=== PATIENT | male | born 1990 | race Caucasian/White ===

== ENCOUNTER 2025-05-11 11:47 | Emergency (ER) | payer BC, OTHER ==
[2025-05-11] MEDS: LORazepam 2 MG/ML SDV IVPUSH ONE (12:28)
[2025-05-11 12:37] LABS: BASOPHILS ABSOLUTE AUTO 0.1 K/mm3 (0.0-0.2); BASOPHILS PERCENT AUTO 0.9 % (0.0-1.0); EOSINOPHILS ABSOLUTE AUTO 0.1 K/mm3 (0.0-0.4); EOSINOPHILS PERCENT AUTO 2.1 % (0.0-6.0); IMMATURE GRAN ABSOLUTE AUTO 0.02 K/mm3 (0.00-0.05); IMMATURE GRAN PERCENT AUTO 0.3 % (0.0-0.4); LYMPHOCYTES ABSOLUTE AUTO 2.3 K/mm3 (1.0-4.8); LYMPHOCYTES PERCENT AUTO 40.1 % (24.0-44.0); MEAN PLATELET VOLUME 9.6 fl (9.4-12.4); MONOCYTES ABSOLUTE AUTO 0.4 K/mm3 (0.0-0.8); MONOCYTES PERCENT AUTO 7.5 % (0.0-8.0); NEUTROPHILS ABSOLUTE AUTO 2.8 K/mm3 (1.8-7.7); NEUTROPHILS PERCENT AUTO 49.1 % (41.0-71.0); NRBC ABSOLUTE 0.00 (0.00-0.02); NRBC PERCENT 0.0 % (0.0-0.2); PLATELET COUNT,PLT 222 K/mm3 (150-400); RED BLOOD CELL COUNT 5.07 M/mm3 (4.52-5.90); WHITE BLOOD CELL COUNT,WBC 5.73 K/mm3 (3.9-11.3)
[2025-05-11 13:03] LABS: A/G RATIO 1.4 (1-2); ALANINE AMINOTRANSFERASE,ALT 21.0 U/L (16-63); ASPARTATE AMNIOTRANSFERASE,AST 18.0 U/L (15-37); BILIRUBIN TOTAL 1.3 mg/dL (0.2-1.0); BLOOD UREA NITROGEN,BUN 12.0 mg/dL (7-18); CARBON DIOXIDE,CO2 24.0 mEq/L (21-32); CHLORIDE,CL 105.0 mEq/L (98-107); CREATININE 1.2 mg/dL (0.7-1.3); EST CRCL DRUG DOSING (CG) 76.8 mL/min; ESTIMATED GFR 80.0 mL/min (>60); GLUCOSE RANDOM 89.0 mg/dL (70-99); POTASSIUM,K 3.7 mEq/L (3.5-5.1); PROTEIN TOTAL,TP 7.4 g/dl (6.4-8.2); SODIUM,NA 140.0 mEq/L (136-145); TROPONIN I HIGH SENSITIVITY 5.0 pg/mL (<=76); TSH 1.319 uIU/mL (0.358-3.74)
[2025-05-11 13:05] LABS: INR 1.06
[2025-05-11 13:06] LABS: D-DIMER QUANTITATIVE 0.23 mg/L (0.19-0.50)
[2025-05-11 13:07] LABS: PTT,PARTIAL THROMBOPLSTIN TIME 27.1 SECONDS (21.7-31.4)
[2025-05-11 15:29] VITALS: BP 117/89; PULSE 58
== END 2025-05-11 15:20 | disposition home or self-care (01) ==
LOC: JD.ED 11:47
DX: F41.9 Anxiety disorder, unspecified (principal); R07.9 Chest pain, unspecified; R06.02 Shortness of breath; J45.909 Unspecified asthma, uncomplicated; Z79.899 Other long term (current) drug therapy; Z91.018 Allergy to other foods
CPT/HCPCS: 36415; 71045; 80053; 83735; 83880; 84443; 84484; 85025; 85379; 85610; 85730; 93005; 96374; 99285; J2060; 93010; 99283